=== PATIENT | female | born 1955 | race Caucasian/White ===

== ENCOUNTER 2018-03-07 17:27 | Emergency (ER) | payer OTHER ==
[~2018-03-07] VITALS: Ht 157.5 cm; Wt 81.6 kg
[~2018-03-07 17:27] MED LIST: CIPRO500 MG PO; LEVSIN/SL0.125 MG PO; PRISTIQ ER100 MG; PROTONIX40 MG PO; TOPROL XL50 MG PO
== END 2018-03-07 19:45 | disposition home or self-care (01) ==
LOC: ER 17:27
DX: M79.662 Pain in left lower leg (principal)

== ENCOUNTER → 2019-02-24 | Emergency (ER) | payer OTHER | END | disposition left against medical advice (07) | LOC: ER 18:30 | DX: Z53.20 Procedure and treatment not carried out because of patient's decision for unspecified reasons (principal) ==